=== PATIENT | male | born 1990 | race Caucasian/White ===

== ENCOUNTER 2016-05-03 07:06 | Emergency (ER) | payer SELFPAY ==
[2016-05-03] MEDS ORDERED: ULTRAM50 M1 PO (07:28)
[2016-05-03] MEDS ORDERED: HYDROCODON-ACE1 EA16 PO (07:28)
[2016-05-03] MEDS ORDERED: ROBAXIN-750750 M1 PO (07:29)
[2016-05-03] MEDS ORDERED: IBUPROFEN800 M1 PO (07:30)
== END 2016-05-03 08:16 ==
LOC: EDMED 07:06
DX: M54.16 Radiculopathy, lumbar region (principal); Z90.89 Acquired absence of other organs; F17.200 Nicotine dependence, unspecified, uncomplicated